=== PATIENT | female | born 1960 | race Caucasian/White ===

== ENCOUNTER 2022-05-31 13:54 | Inpatient (IN) | payer BC ==
[~2022-05-31] VITALS: Ht 165.1 cm; Wt 142.6 kg
[2022-05-31 14:17] LABS: BASOPHILS % (AUTO) 0.5 % (0-1); EOSINOPHILS % (AUTO) 0 % (0-6); HEMATOCRIT 41.4 % (35.0-45.0); HEMOGLOBIN 13.8 g/dl (12.0-16.0); LYMPHOCYTES # (AUTO) 0.1 X10'3 (1.1-4.8); LYMPHOCYTES % (AUTO) 1.4 % (21-51); MEAN CORPUSCULAR HEMOGLOBIN 29.7 PG (27.0-31.0); MEAN CORPUSCULAR HGB CONC 33.2 g/dL (33.0-36.5); MEAN CORPUSCULAR VOLUME 89.4 FL (78-98); MEAN PLATELET VOLUME 7.4 FL (7.4-10.4); MONOCYTES # (AUTO) 0.2 X10'3 (0-0.9); MONOCYTES % (AUTO) 2.7 % (2-12); NEUTROPHILS # (AUTO) 7.5 X10'3 (1.8-7.7); NEUTROPHILS % (AUTO) 95.4 % (42-75); PLATELET COUNT 125 X10'3 (140-440); RED BLOOD COUNT 4.64 X10'6 (4.20-5.60); RED CELL DISTRIBUTION WIDTH 14.2 % (11.5-14.5); WHITE BLOOD COUNT 7.9 X10'3 (4.5-11.0)
[2022-05-31] MEDS ORDERED: BISA-78 PO (14:18)
[2022-05-31] MEDS ORDERED: EMPA10TA PO (14:18)
[2022-05-31] MEDS ORDERED: ESOM40CA PO (14:18)
[2022-05-31] MEDS ORDERED: FEXO-271 PO (14:18)
[2022-05-31] MEDS ORDERED: ACET-3209 PO (14:18)
[2022-05-31] MEDS ORDERED: SIMV-42 PO (14:18)
[2022-05-31] MEDS ORDERED: ZOLP12.52 PO (14:18)
[2022-05-31] MEDS ORDERED: CARV6.252 PO (14:18)
[2022-05-31] MEDS ORDERED: LISI20TA28 PO (14:18)
[2022-05-31] MEDS ORDERED: ASPI-778 (14:18)
[2022-05-31] MEDS ORDERED: ACET-3174 (14:18)
[2022-05-31] MEDS ORDERED: IBUP-24 PO (14:18)
[2022-05-31] MEDS ORDERED: METF-437 PO (14:18)
[2022-05-31 14:24] LABS: APTT 33 SECONDS (22-32)
[2022-05-31 14:28] LABS: ALANINE AMINOTRANSFERASE 56 U/L (12-78); ALBUMIN 3.2 G/DL (3.4-5.0); ALBUMIN/GLOBULIN RATIO 0.8 (1.1-1.5); ALKALINE PHOSPHATASE 83 IU/L (46-116); ANION GAP 16 (8-16); ASPARTATE AMINO TRANSFERASE 108 U/L (10-37); BILIRUBIN,TOTAL 1.7 MG/DL (0.1-1.0); BLOOD UREA NITROGEN 32 MG/DL (7-18); BUN/CREATININE RATIO 19.3 (6.6-38.0); CHLORIDE 93 MMOL/L (99-107); CREATININE 1.66 MG/DL (0.40-0.90); GLUCOSE 229 MG/DL (70-104); POTASSIUM 4.3 MMOL/L (3.5-5.1); SODIUM 127 MMOL/L (135-145); TOTAL CARBON DIOXIDE 18.4 MMOL/L (24-32); eGFR 32 ML/MIN
[2022-05-31 14:50] LABS: TOTAL CELLS COUNTED 100
[2022-05-31 14:51] LABS: PLATELET ESTIMATE DECREASED; POIKILOCYTOSIS FEW; TOXIC VACUOLATION 2+
[2022-05-31 15:30] LABS: ETHANOL < 0.010 GM/DL (0.0-0.010)
[2022-05-31 15:57] LABS: LACTIC SEPSIS 3.6 MMOL/L (0.4-2.0)
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
[2022-05-31 16:03] LABS: AMMONIA < 10 UMOL/L (11-32)
[2022-05-31] MEDS ORDERED: CefTRIAXone/D5W-Rocephin 1gm 50 ML IV ONE (16:20)
[2022-05-31] MEDS ORDERED: vancomycin/NS 1 GM ADD-VANTAGE 250 ML IV ONE (16:20)
[2022-05-31] MEDS ORDERED: normal saline 1000ML IV soln IV ONE (16:20)
[2022-05-31 16:26] LABS: CLARITY,URINE CLOUDY (Clear); COLOR,URINE YELLOW (Yellow); GLUCOSE, URINE >=1000 mg/dl (Neg); KETONES,URINE 15 mg/dl (Neg); LEUKOCYTE ESTERASE ,URINE NEGATIVE (Neg); NITRITES, URINE NEGATIVE (Neg); OCCULT BLOOD,URINE LARGE (Neg); PH,URINE 5.5 (4.8-8.0); PROTEIN,URINE 100 mg/dl (Neg); UROBILINOGEN,URINE 0.2 E.U/dL (0.2-1.0)
[2022-05-31 16:32] LABS: UA COLLECTION TYPE STRAIGHT CATH
[2022-05-31 16:41] LABS: MUCUS STRANDS NONE SEEN /LPF (Neg); RBC,URINE NONE SEEN /HPF (0-2); SQUAMOUS EPITHELIAL CELL,UR FEW /LPF (FEW); WBC,URINE 0-4 /HPF (0-4)
[2022-05-31 16:44] LABS: URINE AMPHETAMINE SCREEN NEGATIVE (Neg); URINE BARBITUATE SCREEN NEGATIVE (Neg); URINE BENZODIAZEPINES SCREEN NEGATIVE (Neg); URINE CANNABINOID SCREEN NEGATIVE (Neg); URINE COCAINE SCREEN NEGATIVE (Neg); URINE METHADONE SCREEN NEGATIVE (Neg); URINE OPIATE SCREEN NEGATIVE (Neg); URINE PHENCYCLIDINE SCREEN NEGATIVE (Neg)
[2022-05-31 16:45] LABS: BACTERIA,URINE 3+ /HPF (Neg)
[2022-05-31] MEDS ORDERED: nitroGLYCERIN 0.4mg/hour patch TD ONE (17:05)
[2022-05-31] MEDS ORDERED: aspirin 81mg tab.chew PO ONE (17:05)
--- NOTE | 2022-05-31 17:42 | NUR ---
NOTIFIED OF [facility] OF [facility]
--- NOTE | 2022-05-31 18:01 | NUR ---
PT TO BE PREPPED FOR SPINAL TAP. PT SISTER TO CONSENT
[2022-05-31] MEDS ORDERED: acetaminophen 120MG suppository, rectal RC ONE (18:20)
--- NOTE | 2022-05-31 18:20 | NUR ---
TRANSFERED CARE TO ADARSH SOLIS
[2022-05-31] MEDS ORDERED: ondansetron/PF 4mg/2ml inj IV PRN (20:15)
[2022-05-31] MEDS ORDERED: PERFLUTREN PROTEIN-A MICROSPHR (Optison) 0.22 MG/ML 3ML VIAL IV ONE (20:15)
[2022-05-31] MEDS ORDERED: magnesium hydroxide 30ml (MOM) UD suspension PO PRN (20:15)
[2022-05-31] MEDS ORDERED: magnesium Cl slow-release 64mg tablet PO PRN (20:15)
[2022-05-31] MEDS ORDERED: magnesium 4gm in 100ml NS 100 ML IV PRN (20:15)
[2022-05-31] MEDS ORDERED: potassium Cl 40MEQ/1/2NS 520ml 520 ML IV PRN (20:15)
[2022-05-31] MEDS ORDERED: potassium Cl 20 mEq SR tablet PO PRN (20:15)
[2022-05-31] MEDS ORDERED: mag hydrox/Alum hydrox/simeth 30ml oral suspension PO PRN (20:15)
[2022-05-31] MEDS ORDERED: VANCOMYCIN 750MG IV in NS 250 ML IV ONE (20:30)
[2022-05-31 20:32] LABS: MAGNESIUM 2.1 MG/DL (1.5-2.4); POTASSIUM 4.2 MMOL/L (3.5-5.1)
[2022-05-31] MEDS: normal saline 1000ml 1,000 ML IV SCH (20:58)
[2022-05-31] MEDS ORDERED: ANAS1TAB10 PO (21:18)
[2022-05-31] MEDS ORDERED: acetaminophen 1,000mg/100ml IV 100 ML IV ONE (22:20)
--- NOTE | 2022-05-31 23:42 | NUR ---
NOTIFIED DR MCMAHON OF PT HYPOTENSION AND LOW MAP VALUES. NS 500ML BOLUS INFUSING NO NEW ORDERS
[2022-06-01] VITALS (9 sets, daily range): BP systolic 97–133; BP diastolic 53–104
--- NOTE | 2022-06-01 00:15 | NUR ---
NOTIFIED DR MCMAHON OF 500ML BOLUS INFUSION COMPLETED WITH NO CHANGE IN PT HYPOTENSION AND LOW MAP B/P'S 76/42 UP TO 86/48. DR MCMAHON WILL CONTACT HAND ALMOND BLANCHER FOR ICU ADMISSION AND ORDERS
--- NOTE | 2022-06-01 00:30 | NUR ---
NOTIFIED DR MCMAHON OF CONTINUED HYPOTENSION AND LOW MAP, AWAITING ORDERS. NO NEW ORDERS REC
--- NOTE | 2022-06-01 01:01 | NUR ---
BRY SISTER CONTACT #
--- NOTE | 2022-06-01 01:53 | NUR ---
DR MCMAHON RETURNED PAGED AND NOTIFIED THAT THIS PT IS NOW ADMITTED TO ICU AND TO REC ORDERS FROM DR HAMMOND FOR HYPOTENSION
--- NOTE | 2022-06-01 01:54 | NUR ---
DR MCMAHON SPOKE WITH DR JASSON MORALES PT PAGED DR HAMMOND REGARDING HYPOTENSION
--- NOTE | 2022-06-01 01:56 | NUR ---
CHARGE NURSE SARAH SPEAKING WITH DR HAMMOND FOR ICU ADMISSION ORDERS AND TX OF HYPOTENSION AND LOW MAPS
[2022-06-01] MEDS ORDERED: NORepinephrine 8mg/ 250ml NS 250 ML IV SCH (02:00)
--- NOTE | 2022-06-01 03:16 | NUR ---
NOTIFIED DR HAMMOND OF X2 SETS OF BC RESULTS: LEFT ARM: GRAM + COCCI IN PAIRS AND CHAINS AT 9.2HR RIGHT ARM": GRAM + COCCI IN PAIRS AND CHAINS AT 8.3HR
--- NOTE | 2022-06-01 03:18 | NUR ---
NOTIFIED DR HAMMOND OF PT TEMP CLIMBING BACK UPWARDS TO 101.0, REC ORDER FOR ADDITIONAL DOSE OF TYL 1GM IV NOW X 1
[2022-06-01] MEDS ORDERED: acetaminophen 1,000mg/100ml IV 100 ML IV ONE (03:20)
[2022-06-01 04:51] LABS: BASOPHILS % (AUTO) 0.2 % (0-1); EOSINOPHILS % (AUTO) 0.1 % (0-6); HEMATOCRIT 41.4 % (35.0-45.0); HEMOGLOBIN 13.8 g/dl (12.0-16.0); LYMPHOCYTES # (AUTO) 0.5 X10'3 (1.1-4.8); MEAN CORPUSCULAR HEMOGLOBIN 30.1 PG (27.0-31.0); MEAN CORPUSCULAR HGB CONC 33.4 g/dL (33.0-36.5); MEAN CORPUSCULAR VOLUME 90.2 FL (78-98); MEAN PLATELET VOLUME 7.7 FL (7.4-10.4); MONOCYTES # (AUTO) 0.8 X10'3 (0-0.9); MONOCYTES % (AUTO) 8.9 % (2-12); NEUTROPHILS # (AUTO) 8.2 X10'3 (1.8-7.7); NEUTROPHILS % (AUTO) 85.8 % (42-75); PLATELET COUNT 104 X10'3 (140-440); RED BLOOD COUNT 4.59 X10'6 (4.20-5.60); RED CELL DISTRIBUTION WIDTH 14.6 % (11.5-14.5); WHITE BLOOD COUNT 9.5 X10'3 (4.5-11.0)
[2022-06-01] MEDS ORDERED: AMOX-580 PO (04:54)
[2022-06-01] MEDS ORDERED: OMEP-271 PO (04:54)
[2022-06-01] MEDS ORDERED: DEXT1DRO6 OP (04:54)
[2022-06-01] MEDS ORDERED: FAMO40TA73 PO (04:54)
[2022-06-01] MEDS ORDERED: HYAL1CAP PO (04:54)
[2022-06-01] MEDS ORDERED: DULA1.5P SQ (04:54)
--- NOTE | 2022-06-01 05:00 | NUR ---
While assisting MD with central line noticed a clear nitro patch to pt left chest. Nitro patch removed and skin cleaned. Central line on hold to see if blood pressure will stabilize after removal of nitro patch.
[2022-06-01 05:03] LABS: ALBUMIN 2.7 G/DL (3.4-5.0); ANION GAP 15 (8-16); BLOOD UREA NITROGEN 26 MG/DL (7-18); BUN/CREATININE RATIO 21.3 (6.6-38.0); CALCIUM 8.3 MG/DL (8.5-10.1); CHLORIDE 100 MMOL/L (99-107); CREATININE 1.22 MG/DL (0.40-0.90); GLUCOSE 155 MG/DL (70-104); POTASSIUM 3.7 MMOL/L (3.5-5.1); SODIUM 133 MMOL/L (135-145); eGFR 45 ML/MIN
[2022-06-01] MEDS: K and/or MAG REPLACEMENT MC SCH ×2 (06:44→19:38)
[2022-06-01] MEDS: docusate sod 100mg capsule PO SCH ×2 (06:45→20:00)
[2022-06-01] MEDS: normal saline 1000ml 1,000 ML IV SCH ×2 (07:09→11:04)
[2022-06-01 07:23] LABS: PLATELET ESTIMATE DECREASED; TOTAL CELLS COUNTED 100
[2022-06-01] MEDS: vancomycin/NS 1 GM ADD-VANTAGE 250 ML IV SCH ×2 (08:16→20:00)
[2022-06-01] MEDS: enoxaparin 40mg/0.4ml syringe SUBCUT SCH (08:17)
[2022-06-01] MEDS: acetaminophen 325mg tablet PO PRN ×2 (08:28→14:05)
[2022-06-01] MEDS ORDERED: CefTRIAXone 2gm/D5W 50ml BAG 50 ML IV STA (08:42)
--- NOTE | 2022-06-01 09:00 | NUR ---
Received pt report from Martha SOLIS.
[2022-06-01] MEDS ORDERED: zolpidem 5mg tablet PO SCH (11:25)
[2022-06-01 11:49] LABS: HIV ANTIBODY 1&2 RAPID NON-REACTIVE (Neg)
[2022-06-01 13:00] LABS: HEMOGLOBIN A1C 6.1 % (4.5-6.2)
[2022-06-01 13:54] LABS: CREATINE KINASE 4364 U/L (26-192)
[2022-06-01] MEDS: oxyCODONE/APAP 5-325mg tablet PO PRN ×2 (14:03→18:06)
--- NOTE | 2022-06-01 14:42 | NUR ---
Paged MD regarding pt complaint of left knee pain and left wrist pain. Pt reports falling on that side prior to admit. Awaiting call back.
--- NOTE | 2022-06-01 14:47 | NUR ---
Attempted to call report, tele stated nurse will call back.
--- NOTE | 2022-06-01 15:30 | NUR ---
Received patient report from tele nurse Moises SOLIS. Patient going to room 9804L.
--- NOTE | 2022-06-01 16:42 | NUR ---
Patient transferred to room 3027B with all belongings. Sister and brother at bedside and are aware of transfer. Nurse Moises SOLIS at bedside to receive patient.
[2022-06-01] MEDS ORDERED: CefTRIAXone 2gm/D5W 50ml BAG 50 ML IV SCH (17:00)
[2022-06-01] MEDS: CefTRIAXone 2gm/D5W 50ml BAG 50 ML IV SCH (19:43)
[2022-06-01] MEDS: carvedilol 6.25mg tablet PO SCH (20:00)
[2022-06-01] MEDS: anastrozole 1 MG tablet PO SCH (21:39)
[2022-06-01] MEDS: atorvastatin 10mg tablet PO SCH (21:39)
--- NOTE | 2022-06-01 21:39 | NUR ---
scanned meds in room - family at bedside. must not have saved on computer - found eMAR still pink - pushed administer button.
[2022-06-01] MEDS ORDERED: vancomycin/NS 1 GM ADD-VANTAGE 250 ML IV SCH (22:00)
[2022-06-02] MEDS: normal saline 1000ml 1,000 ML IV SCH ×3 (00:47→20:15)
[2022-06-02 02:00] VITALS: BP 139/67
--- NOTE | 2022-06-02 02:52 | NUR ---
took patient VS - O2 sat in the 80s RT called and placed patient on 3L via CPAP. Patient very confused and grabbing at things that are not there. Not making sense with her words. Called MD - order for stat ABG
[2022-06-02 03:55] LABS: ABG BASE EXCESS -6.9 mmol/L (-2.0-2.0); ABG HCO3 15.8 mmol/L (22.0-26.0); ABG OXYGEN SATURATION 89.9 % (94-97); ABG PCO2 (T) 25.1 mmHg (32.0-45.0); ABG PO2 (T) 54.6 mmHg (75.0-100.0); ALLEN'S TEST POSITIVE; FCOHb 0.5 % (0.0-3.9); FMetHb 0.4 % (0.0-1.5); FO2Hb 89.1 % (94-97); TOTAL HEMOGLOBIN 13.6 G/dl (12.0-16.0)
--- NOTE | 2022-06-02 06:26 | NUR ---
Problems reprioritized. Patient report given, questions answered & plan of care reviewed with IRMA De Leon.
[2022-06-02 07:00] VITALS: BP 149/77
[2022-06-02] MEDS ORDERED: VANCOMYCIN LEVEL IV ONE (07:30)
[2022-06-02] MEDS: enoxaparin 40mg/0.4ml syringe SUBCUT SCH (08:00)
[2022-06-02] MEDS ORDERED: bisacodyl 5mg tablet.DR PO PRN (08:00)
[2022-06-02] MEDS ORDERED: EMPAGLIFLOZIN 25 MG TABLET PO SCH (08:00)
[2022-06-02] MEDS: K and/or MAG REPLACEMENT MC SCH ×2 (08:00→20:23)
[2022-06-02 08:41] LABS: BASOPHILS % (AUTO) 0.1 % (0-1); EOSINOPHILS # (AUTO) 0.1 X10'3 (0-0.9); EOSINOPHILS % (AUTO) 0.8 % (0-6); HEMATOCRIT 41.2 % (35.0-45.0); HEMOGLOBIN 13.6 g/dl (12.0-16.0); LYMPHOCYTES # (AUTO) 0.2 X10'3 (1.1-4.8); LYMPHOCYTES % (AUTO) 3.2 % (21-51); MEAN CORPUSCULAR HEMOGLOBIN 29.6 PG (27.0-31.0); MEAN CORPUSCULAR HGB CONC 32.9 g/dL (33.0-36.5); MEAN CORPUSCULAR VOLUME 89.8 FL (78-98); MEAN PLATELET VOLUME 7.8 FL (7.4-10.4); MONOCYTES # (AUTO) 0.4 X10'3 (0-0.9); MONOCYTES % (AUTO) 4.8 % (2-12); NEUTROPHILS # (AUTO) 6.9 X10'3 (1.8-7.7); NEUTROPHILS % (AUTO) 91.1 % (42-75); PLATELET COUNT 89 X10'3 (140-440); RED BLOOD COUNT 4.59 X10'6 (4.20-5.60); RED CELL DISTRIBUTION WIDTH 14.5 % (11.5-14.5); WHITE BLOOD COUNT 7.5 X10'3 (4.5-11.0)
[2022-06-02] MEDS: carvedilol 6.25mg tablet PO SCH ×2 (08:50→20:20)
[2022-06-02] MEDS: acetaminophen 325mg tablet PO PRN (08:50)
[2022-06-02] MEDS: docusate sod 100mg capsule PO SCH ×2 (08:50→20:20)
[2022-06-02] MEDS: pantoprazole 40mg Tablet.DR PO SCH (08:50)
[2022-06-02] MEDS: CefTRIAXone 2gm/D5W 50ml BAG 50 ML IV SCH (08:51)
[2022-06-02 08:53] LABS: ALBUMIN 2.4 G/DL (3.4-5.0); ANION GAP 16 (8-16); BLOOD UREA NITROGEN 23 MG/DL (7-18); BUN/CREATININE RATIO 20.2 (6.6-38.0); CALCIUM 8.8 MG/DL (8.5-10.1); CHLORIDE 98 MMOL/L (99-107); CREATININE 1.14 MG/DL (0.40-0.90); GLUCOSE 173 MG/DL (70-104); MAGNESIUM 1.9 MG/DL (1.5-2.4); SODIUM 131 MMOL/L (135-145); TOTAL CARBON DIOXIDE 16.8 MMOL/L (24-32); VANCOMYCIN,TROUGH 10.1 UG/ML (6.0-14.0); eGFR 49 ML/MIN
[2022-06-02 08:59] LABS: POTASSIUM 2.9 MMOL/L (3.5-5.1)
--- NOTE | 2022-06-02 09:09 | NUR ---
Diabetes consult: Pt w/ hx of DM A1c 6.1 per EMR, well controlled and appropriate. DM ed not indicated at this time. Addendum: 06/02/22 at [address] Amended: Links added.
[2022-06-02] MEDS: potassium Cl 20 mEq SR tablet PO PRN ×2 (09:36→20:20)
[2022-06-02] MEDS: vancomycin/NS 1 GM ADD-VANTAGE 250 ML IV SCH (09:41)
[2022-06-02] MEDS ORDERED: iohexol 300mg/ml 100ml inj. ONE (09:53)
[2022-06-02 12:38] VITALS: BP 103/54
[2022-06-02] MEDS: linezolid 600mg tablet PO SCH ×3 (13:50→20:20)
[2022-06-02] MEDS ORDERED: aspirin 81mg, enteric-coated 1 TAB TABLET.DR PO ONE (13:55)
[2022-06-02 15:00] VITALS: BP 133/70
[2022-06-02 19:00] VITALS: BP 113/48
[2022-06-02] MEDS: VANCOmycin 1250MG/NS 250ml Bag 250 ML IV SCH (20:17)
[2022-06-02] MEDS: anastrozole 1 MG tablet PO SCH (20:20)
[2022-06-02] MEDS: atorvastatin 10mg tablet PO SCH (20:21)
[2022-06-02] MEDS: traMADol 50MG tablet PO PRN (21:05)
[2022-06-02] MEDS ORDERED: MESSAGE TO PHARMACY PO ONE (22:10)
[2022-06-02] MEDS ORDERED: dextrose 50%-water 50ml dispensing syringe IV PRN ×2 (22:10)
[2022-06-02] MEDS ORDERED: glucagon, human recombinant 1mg kit SUBCUT PRN (22:10)
[2022-06-02] MEDS ORDERED: DEXTROSE 15 GM of carb/4 tabs (each vial/BOTTLE has 4 tablets) PO PRN ×2 (22:10)
[2022-06-02] MEDS ORDERED: insulin glargine (Lantus) pen - multi-dose SQ ONE (22:55)
[2022-06-02 23:00] VITALS: BP 105/57
[2022-06-03] MEDS: potassium Cl 20 mEq SR tablet PO PRN (00:59)
[2022-06-03 03:00] VITALS: BP 108/60
[2022-06-03 06:05] LABS: BASOPHILS % (AUTO) 0.2 % (0-1); EOSINOPHILS % (AUTO) 0.2 % (0-6); HEMATOCRIT 37.8 % (35.0-45.0); HEMOGLOBIN 12.7 g/dl (12.0-16.0); LYMPHOCYTES # (AUTO) 0.4 X10'3 (1.1-4.8); LYMPHOCYTES % (AUTO) 4.4 % (21-51); MEAN CORPUSCULAR HGB CONC 33.7 g/dL (33.0-36.5); MEAN CORPUSCULAR VOLUME 89.1 FL (78-98); MEAN PLATELET VOLUME 8.7 FL (7.4-10.4); MONOCYTES # (AUTO) 0.5 X10'3 (0-0.9); MONOCYTES % (AUTO) 5.1 % (2-12); NEUTROPHILS # (AUTO) 8.1 X10'3 (1.8-7.7); NEUTROPHILS % (AUTO) 90.1 % (42-75); PLATELET COUNT 95 X10'3 (140-440); RED BLOOD COUNT 4.24 X10'6 (4.20-5.60)
--- NOTE | 2022-06-03 06:51 | NUR ---
Patient in room PCU 3027. I have received report from Chapis and had the opportunity to ask questions and assume patient care.
[2022-06-03 07:00] VITALS: BP 123/68
[2022-06-03] MEDS: docusate sod 100mg capsule PO SCH ×2 (08:00→20:46)
[2022-06-03] MEDS: enoxaparin 40mg/0.4ml syringe SUBCUT SCH (08:00)
[2022-06-03] MEDS: K and/or MAG REPLACEMENT MC SCH ×2 (08:00→20:00)
[2022-06-03 08:22] LABS: ALBUMIN 1.9 G/DL (3.4-5.0); ANION GAP 10 (8-16); BLOOD UREA NITROGEN 23 MG/DL (7-18); BUN/CREATININE RATIO 26.4 (6.6-38.0); CALCIUM 8.5 MG/DL (8.5-10.1); CHLORIDE 102 MMOL/L (99-107); CREATININE 0.87 MG/DL (0.40-0.90); GLUCOSE 160 MG/DL (70-104); MAGNESIUM 1.8 MG/DL (1.5-2.4); POTASSIUM 3.7 MMOL/L (3.5-5.1); SODIUM 132 MMOL/L (135-145); TOTAL CARBON DIOXIDE 20.3 MMOL/L (24-32); eGFR 67 ML/MIN
--- NOTE | 2022-06-03 08:57 | NUR ---
Noted pt started on Zyvox though is currently confused per RN notes, documented as A&O x 2, not appropriate for ed at this time. Addendum: 06/03/22 at [address] Amended: Links added.
[2022-06-03] MEDS: CefTRIAXone 2gm/D5W 50ml BAG 50 ML IV SCH (09:34)
[2022-06-03] MEDS: carvedilol 6.25mg tablet PO SCH ×2 (09:47→20:46)
[2022-06-03] MEDS: aspirin 81mg, enteric-coated 1 TAB TABLET.DR PO SCH (09:47)
[2022-06-03] MEDS: pantoprazole 40mg Tablet.DR PO SCH (09:48)
[2022-06-03] MEDS: linezolid 600mg tablet PO SCH ×2 (09:49→20:46)
[2022-06-03 10:00] VITALS: BP 143/76
[2022-06-03 10:19] LABS: TOTAL CELLS COUNTED 100
[2022-06-03 10:20] LABS: ANISOCYTOSIS FEW; BURR CELLS 1+; PLATELET ESTIMATE DECREASED; TOXIC VACUOLATION 2+
[2022-06-03] MEDS: Dulaglutide (Trulicity) 1.5 MG/0.5ML SQ SCH (11:28)
[2022-06-03] MEDS: VANCOmycin 1250MG/NS 250ml Bag 250 ML IV SCH ×2 (11:55→20:48)
[2022-06-03] MEDS: normal saline 1000ml 1,000 ML IV SCH (11:55)
--- NOTE | 2022-06-03 13:54 | NUR ---
PRESSURE ULCER EDUCATION: DEFINITION: A pressure ulcer is an area of skin that breaks down when you stay in one position too long. The constant pressure against the skin reduces the blood flow to that area and the affected tissue dies. CAUSES: "Being bedridden or in a wheelchair "Fragile skin "Having a chronic condition, such as diabetes or vascular disease "Inability to move certain parts of your body without assistance "Older age "Incontinence of urine or stool SYMPTOMS: "A reddened area that DOES NOT turn white when pressed on - this can be the beginning of a pressure ulcer "A blister, deep sore or a crater - these can be advanced pressure ulcers FIRST AID: "Relieve the pressure on this area "Keep the area clean and dry "Call your primary doctor if you see any of the above symptoms "DO NOT massage the area "DO NOT use a donut shaped or ring shaped pillow- these actually interfere with the blood flow and cause complications PREVENTION: "Check for pressure ulcers everyday "Change position at least every two hours to relieve pressure "Use items that help relieve pressure- pillows, sheepskin, foam padding, and powders. "Keep skin clean and dry "Eat healthy well balanced meals "Exercise daily IF YOU SEE ANY OF THESE SYMPTOMS WHILE IN THE HOSPITAL - TELL YOUR NURSE IMMEDIATELY. IF YOU SEE ANY OF THESE SYMPTOMS WHILE AT HOME OR HAVE ANY QUESTIONS OR CONCERNS ABOUT PRESSURE ULCERS - CALL YOUR PRIMARY DOCTOR IMMEDIATELY. Addendum: 06/03/22 at 1354 by Charity Pérez LVN Amended: Links added.
[2022-06-03] MEDS ORDERED: iohexol 350MG/ML 100ml bottle IV ONE (15:18)
[2022-06-03 18:00] VITALS: BP 141/73
--- NOTE | 2022-06-03 18:27 | NUR ---
Problems reprioritized. Patient report given, questions answered & plan of care reviewed with Alma Cary
[2022-06-03] MEDS: atorvastatin 10mg tablet PO SCH (20:46)
[2022-06-03] MEDS: nystatin 15 GM powder TP SCH (20:46)
[2022-06-03] MEDS: anastrozole 1 MG tablet PO SCH (20:48)
[2022-06-03] MEDS ORDERED: insulin glargine (Lantus) pen - multi-dose SQ SCH (21:00)
[2022-06-03 22:00] VITALS: BP 118/66
[2022-06-04] MEDS: normal saline 1000ml 1,000 ML IV SCH ×4 (00:24→20:51)
[2022-06-04] MEDS: traMADol 50MG tablet PO PRN ×3 (00:25→20:40)
[2022-06-04 02:00] VITALS: BP 123/70
[2022-06-04 06:30] VITALS: BP 130/81
--- NOTE | 2022-06-04 07:07 | NUR ---
Patient in room PCU 3027. I have received report from Alma Morales and had the opportunity to ask questions and assume patient care.
[2022-06-04] MEDS ORDERED: VANCOMYCIN LEVEL IV ONE (07:30)
[2022-06-04] MEDS: K and/or MAG REPLACEMENT MC SCH ×2 (08:00→20:00)
[2022-06-04] MEDS: docusate sod 100mg capsule PO SCH ×2 (08:00→20:00)
[2022-06-04 08:01] LABS: HEMATOCRIT 37.6 % (35.0-45.0); HEMOGLOBIN 12.7 g/dl (12.0-16.0); MEAN CORPUSCULAR HEMOGLOBIN 29.8 PG (27.0-31.0); MEAN CORPUSCULAR HGB CONC 33.8 g/dL (33.0-36.5); MEAN CORPUSCULAR VOLUME 88.2 FL (78-98); PLATELET COUNT 106 X10'3 (140-440); RED BLOOD COUNT 4.26 X10'6 (4.20-5.60); RED CELL DISTRIBUTION WIDTH 15.1 % (11.5-14.5); WHITE BLOOD COUNT 9.9 X10'3 (4.5-11.0)
[2022-06-04 08:02] LABS: BASOPHILS % (AUTO) 0.3 % (0-1); EOSINOPHILS % (AUTO) 0.2 % (0-6); LYMPHOCYTES % (AUTO) 9.8 % (21-51); MEAN PLATELET VOLUME 8.1 FL (7.4-10.4); MONOCYTES # (AUTO) 0.9 X10'3 (0-0.9); MONOCYTES % (AUTO) 9.1 % (2-12); NEUTROPHILS % (AUTO) 80.6 % (42-75)
[2022-06-04 08:18] LABS: ANION GAP 9 (8-16); CHLORIDE 104 MMOL/L (99-107); GLUCOSE 122 MG/DL (70-104); POTASSIUM 3.5 MMOL/L (3.5-5.1); SODIUM 134 MMOL/L (135-145); TOTAL CARBON DIOXIDE 20.6 MMOL/L (24-32)
[2022-06-04 08:19] LABS: ALBUMIN 1.7 G/DL (3.4-5.0); BLOOD UREA NITROGEN 20 MG/DL (7-18); BUN/CREATININE RATIO 25.6 (6.6-38.0); CALCIUM 8.4 MG/DL (8.5-10.1); CREATININE 0.78 MG/DL (0.40-0.90); MAGNESIUM 1.7 MG/DL (1.5-2.4); VANCOMYCIN,TROUGH 15.4 UG/ML (6.0-14.0); eGFR 76 ML/MIN
[2022-06-04 09:17] LABS: ANISOCYTOSIS FEW; PLATELET ESTIMATE DECREASED; TOTAL CELLS COUNTED 100
[2022-06-04 09:18] LABS: ELLIPTOCYTES FEW; HYPERSEGMENTED NEUTROPHILS 1+; POLYCHROMASIA FEW; TOXIC GRANULATION 1+; TOXIC VACUOLATION FEW
[2022-06-04] MEDS: CefTRIAXone 2gm/D5W 50ml BAG 50 ML IV SCH (09:18)
[2022-06-04] MEDS: carvedilol 6.25mg tablet PO SCH ×2 (09:25→20:28)
[2022-06-04] MEDS: pantoprazole 40mg Tablet.DR PO SCH (09:26)
[2022-06-04] MEDS: aspirin 81mg, enteric-coated 1 TAB TABLET.DR PO SCH (09:26)
[2022-06-04] MEDS: linezolid 600mg tablet PO SCH ×2 (09:26→20:24)
[2022-06-04] MEDS: clopidogrel 75mg tablet PO SCH (09:26)
[2022-06-04] MEDS: nystatin 15 GM powder TP SCH ×3 (09:27→20:42)
[2022-06-04] MEDS: enoxaparin 40mg/0.4ml syringe SUBCUT SCH (09:28)
[2022-06-04 10:00] VITALS: BP 156/86
[2022-06-04 18:00] VITALS: BP 140/80
--- NOTE | 2022-06-04 18:26 | NUR ---
Problems reprioritized. Patient report given, questions answered & plan of care reviewed with Clary.
[2022-06-04] MEDS: atorvastatin 10mg tablet PO SCH (20:24)
[2022-06-04] MEDS: anastrozole 1 MG tablet PO SCH (20:25)
[2022-06-04] MEDS: acetaminophen 325mg tablet PO PRN (21:52)
[2022-06-04 22:00] VITALS: BP 136/75
[2022-06-05 02:00] VITALS: BP 126/98
[2022-06-05 05:50] LABS: BASOPHILS % (AUTO) 0.2 % (0-1); EOSINOPHILS # (AUTO) 0.1 X10'3 (0-0.9); EOSINOPHILS % (AUTO) 0.7 % (0-6); HEMATOCRIT 37.7 % (35.0-45.0); HEMOGLOBIN 12.7 g/dl (12.0-16.0); LYMPHOCYTES # (AUTO) 1.3 X10'3 (1.1-4.8); LYMPHOCYTES % (AUTO) 11.5 % (21-51); MEAN CORPUSCULAR HEMOGLOBIN 29.8 PG (27.0-31.0); MEAN CORPUSCULAR HGB CONC 33.8 g/dL (33.0-36.5); MEAN CORPUSCULAR VOLUME 88.2 FL (78-98); MEAN PLATELET VOLUME 7.6 FL (7.4-10.4); MONOCYTES % (AUTO) 9.1 % (2-12); NEUTROPHILS # (AUTO) 8.7 X10'3 (1.8-7.7); NEUTROPHILS % (AUTO) 78.5 % (42-75); PLATELET COUNT 137 X10'3 (140-440); RED BLOOD COUNT 4.28 X10'6 (4.20-5.60); RED CELL DISTRIBUTION WIDTH 14.9 % (11.5-14.5); WHITE BLOOD COUNT 11.1 X10'3 (4.5-11.0)
[2022-06-05 06:18] LABS: TOTAL CELLS COUNTED 100
[2022-06-05 06:19] LABS: PLATELET ESTIMATE DECREASED
[2022-06-05 06:22] LABS: ALBUMIN 1.7 G/DL (3.4-5.0); ANION GAP 8 (8-16); BLOOD UREA NITROGEN 20 MG/DL (7-18); BUN/CREATININE RATIO 27.4 (6.6-38.0); CALCIUM 8.4 MG/DL (8.5-10.1); CHLORIDE 106 MMOL/L (99-107); CREATININE 0.73 MG/DL (0.40-0.90); GLUCOSE 110 MG/DL (70-104); POTASSIUM 3.4 MMOL/L (3.5-5.1); SODIUM 136 MMOL/L (135-145); TOTAL CARBON DIOXIDE 22.3 MMOL/L (24-32); eGFR 82 ML/MIN
[2022-06-05 06:30] VITALS: BP 122/64
[2022-06-05] MEDS: normal saline 1000ml 1,000 ML IV SCH (06:32)
[2022-06-05] MEDS: K and/or MAG REPLACEMENT MC SCH ×2 (08:00→20:00)
[2022-06-05] MEDS: enoxaparin 40mg/0.4ml syringe SUBCUT SCH (08:46)
[2022-06-05] MEDS: carvedilol 6.25mg tablet PO SCH ×2 (08:46→20:10)
[2022-06-05] MEDS: aspirin 81mg, enteric-coated 1 TAB TABLET.DR PO SCH (08:46)
[2022-06-05] MEDS: linezolid 600mg tablet PO SCH ×2 (08:46→20:10)
[2022-06-05] MEDS: pantoprazole 40mg Tablet.DR PO SCH (08:46)
[2022-06-05] MEDS: docusate sod 100mg capsule PO SCH ×2 (08:46→20:00)
[2022-06-05] MEDS: clopidogrel 75mg tablet PO SCH (08:46)
[2022-06-05] MEDS: nystatin 15 GM powder TP SCH ×3 (08:52→22:00)
[2022-06-05] MEDS: CefTRIAXone 2gm/D5W 50ml BAG 50 ML IV SCH (08:56)
[2022-06-05] MEDS ORDERED: magnesium 4gm in 100ml NS 100 ML IV PRN (09:10)
[2022-06-05] MEDS ORDERED: magnesium Cl slow-release 64mg tablet PO PRN (09:10)
[2022-06-05] MEDS ORDERED: potassium Cl 40MEQ/1/2NS 520ml 520 ML IV PRN (09:10)
[2022-06-05] MEDS ORDERED: potassium Cl 20 mEq SR tablet PO PRN (09:10)
--- NOTE | 2022-06-05 09:11 | NUR ---
gave order to start Pot/Mag replacement protocol. Orders updated.
[2022-06-05 09:31] LABS: CREATINE KINASE 136 U/L (26-192)
--- NOTE | 2022-06-05 10:37 | NUR ---
Patient in room PCU 3027. I have received report from Clary and had the opportunity to ask questions and assume patient care.
--- NOTE | 2022-06-05 13:21 | NUR ---
Initial: Pt admit for sepsis, RLE cellulitis, lactic acidosis, NSTEMI, YASEMIN, and hyponatremia. Pt initially on a full liquid diet and overall ate poorly, documented with mostly 0-25% PO intake. PO intake slightly improved with diet advancement to CHO controlled, documented with average 58% PO intake of three recent meals, though not meeting estimated nutrient needs. Pt seen at bedside with sister present. Pt reports usually having a great appetite and able to eat well however currently with no appetite, pt only consumed a few bites of chicken and rice at lunch per sister. Pt also with c/o dry mouth despite reporting drinking a lot of water. RD discussed ways to assist with dry mouth and obtained food preferences, see below. Pt agrees to an Ensure to optimize nutrient intake and requests BIDLD, to be sent pending physician approval in EMR. Pt denies food allergies, difficulty chewing/swallowing, or constipation/diarrhea. LBM 06/03, receiving routine bowel care with PRN bowel care available. Written and verbal low tyramine nutrition therapy education provided with RD contact information. Pt/family encouraged to reach out if needed. Will continue to follow. Recommendations: 1) Liberalize to regular diet if PO intake does not improve, A1c 6.1% 2) Encourage PO intake and honor food preferences: chicken broth WL, chocolate ice cream WS, no garlic 3) Chocolate Ensure Plus HP BIDLD, pending physician approval in EMR 4) Routine bowel care 5) Weekly scaled weights Addendum: 06/05/22 at [address] Amended: Links added.
--- NOTE | 2022-06-05 14:24 | NUR ---
Potassium supplement 20meq dose given at 0949 today, improper documentation in MAR, MAR reflects 40meq. Second dose being administered at 1430.
--- NOTE | 2022-06-05 14:30 | NUR ---
Re: Chace in 3028[address]. trop [address]
[2022-06-05] MEDS: potassium Cl 20 mEq SR tablet PO PRN ×2 (14:37→20:13)
[2022-06-05] MEDS: meropenem inj 1 GM in normal saline 100ml IV soln 100 ML IV SCH ×2 (16:18→23:48)
[2022-06-05 18:00] VITALS: BP 135/64
--- NOTE | 2022-06-05 18:10 | NUR ---
Problems reprioritized. Patient report given, questions answered & plan of care reviewed with Nikko.
[2022-06-05] MEDS ORDERED: nitroGLYCERIN 0.4mg SUBLingual tab SL PRN (18:35)
[2022-06-05] MEDS ORDERED: metoprolol tartrate 1mg/ml inj IV PRN (18:35)
[2022-06-05] MEDS ORDERED: regadenoson 0.4mg/5ml syringe IV PRN (18:35)
[2022-06-05] MEDS ORDERED: aminophylline 500mg/20ml vial IV PRN (18:35)
[2022-06-05 20:00] VITALS: BP 157/81
[2022-06-05] MEDS ORDERED: K and/or MAG REPLACEMENT MC SCH (20:00)
[2022-06-05] MEDS: anastrozole 1 MG tablet PO SCH (20:11)
[2022-06-05] MEDS: atorvastatin 10mg tablet PO SCH (23:48)
[2022-06-05] MEDS: traMADol 50MG tablet PO PRN (23:55)
[2022-06-06] VITALS (13 sets, daily range): BP systolic 137–168; BP diastolic 69–95
--- NOTE | 2022-06-06 00:10 | NUR ---
noted pt has dry mouth. added humidification to oxygen tubing that is attached to the patients cpap (not filled in cpap machine, pt states "oh, we took that off"). pt painful, ultram given. pt requested to have ROM on LE's. right leg stronger than left leg. pt able to help move right leg more than left b/c of pain. encouraged pt to do ankle pumps and quad sets while in bed to encouraged strengthening. vebalized understanding and able to return demonstration.
--- NOTE | 2022-06-06 06:25 | NUR ---
reported to days. noted pt will have ulices scan today - pt is NPO
--- NOTE | 2022-06-06 07:10 | NUR ---
Patient in room PCU 3027. I have received report from IRMA El and had the opportunity to ask questions and assume patient care.
[2022-06-06] MEDS: K and/or MAG REPLACEMENT MC SCH ×2 (08:00→20:00)
[2022-06-06] MEDS: docusate sod 100mg capsule PO SCH ×2 (10:48→21:33)
[2022-06-06] MEDS: nystatin 15 GM powder TP SCH ×3 (10:48→21:33)
[2022-06-06] MEDS: clopidogrel 75mg tablet PO SCH (10:48)
[2022-06-06] MEDS: carvedilol 6.25mg tablet PO SCH ×2 (10:49→21:32)
[2022-06-06] MEDS: pantoprazole 40mg Tablet.DR PO SCH (10:49)
[2022-06-06] MEDS: linezolid 600mg tablet PO SCH ×2 (10:49→21:32)
[2022-06-06] MEDS: aspirin 81mg, enteric-coated 1 TAB TABLET.DR PO SCH (10:49)
[2022-06-06] MEDS: enoxaparin 40mg/0.4ml syringe SUBCUT SCH (10:50)
[2022-06-06] MEDS: meropenem inj 1 GM in normal saline 100ml IV soln 100 ML IV SCH ×3 (10:50→23:57)
[2022-06-06] MEDS: LACTOSE-REDUCED FOOD (ENSURE PLUS HP) 237 ML LIQUID PO SCH ×2 (12:30→18:13)
--- NOTE | 2022-06-06 12:30 | NUR ---
PAGER ID: [phone] MESSAGE: Violeta [phone] RE: Carli Mas room 3027B - can she have a diet for lunch? Thank you
--- NOTE | 2022-06-06 13:17 | NUR ---
PAGER ID: [phone] MESSAGE: Violeta [phone] RE: Crali Buttarmando room 3027B - can we order a K lab and also can she have food or still NPO?
--- NOTE | 2022-06-06 18:15 | NUR ---
Problems reprioritized. Patient report given, questions answered & plan of care reviewed with IRMA El.
[2022-06-06] MEDS: atorvastatin 10mg tablet PO SCH (21:32)
[2022-06-06] MEDS: traMADol 50MG tablet PO PRN (21:32)
[2022-06-06] MEDS: anastrozole 1 MG tablet PO SCH (21:33)
[2022-06-07 07:00] VITALS: BP 160/87
--- NOTE | 2022-06-07 07:07 | NUR ---
reported to days. noted pt anticipates discharge to [facility] today.
[2022-06-07] MEDS: K and/or MAG REPLACEMENT MC SCH ×2 (08:00→20:00)
[2022-06-07] MEDS: aspirin 81mg, enteric-coated 1 TAB TABLET.DR PO SCH (08:25)
[2022-06-07] MEDS: linezolid 600mg tablet PO SCH ×2 (08:25→22:54)
[2022-06-07] MEDS: nystatin 15 GM powder TP SCH ×3 (08:26→23:14)
[2022-06-07] MEDS: docusate sod 100mg capsule PO SCH ×2 (08:26→22:54)
[2022-06-07] MEDS: carvedilol 6.25mg tablet PO SCH ×2 (08:26→22:54)
[2022-06-07] MEDS: pantoprazole 40mg Tablet.DR PO SCH (08:26)
[2022-06-07] MEDS: enoxaparin 40mg/0.4ml syringe SUBCUT SCH (08:26)
[2022-06-07] MEDS: clopidogrel 75mg tablet PO SCH (08:26)
[2022-06-07] MEDS: meropenem inj 1 GM in normal saline 100ml IV soln 100 ML IV SCH ×2 (08:29→16:24)
[2022-06-07 08:52] LABS: BASOPHILS % (AUTO) 0.4 % (0-1); EOSINOPHILS # (AUTO) 0.1 X10'3 (0-0.9); EOSINOPHILS % (AUTO) 1.1 % (0-6); HEMATOCRIT 35.5 % (35.0-45.0); HEMOGLOBIN 12.1 g/dl (12.0-16.0); LYMPHOCYTES # (AUTO) 1.7 X10'3 (1.1-4.8); LYMPHOCYTES % (AUTO) 18.7 % (21-51); MEAN CORPUSCULAR HEMOGLOBIN 30.2 PG (27.0-31.0); MONOCYTES # (AUTO) 0.8 X10'3 (0-0.9); MONOCYTES % (AUTO) 9.1 % (2-12); NEUTROPHILS # (AUTO) 6.5 X10'3 (1.8-7.7); NEUTROPHILS % (AUTO) 70.7 % (42-75); PLATELET COUNT 237 X10'3 (140-440); RED BLOOD COUNT 3.98 X10'6 (4.20-5.60); RED CELL DISTRIBUTION WIDTH 14.9 % (11.5-14.5); WHITE BLOOD COUNT 9.2 X10'3 (4.5-11.0)
[2022-06-07 09:16] LABS: ALBUMIN 1.6 G/DL (3.4-5.0); ANION GAP 9 (8-16); BLOOD UREA NITROGEN 15 MG/DL (7-18); BUN/CREATININE RATIO 21.1 (6.6-38.0); CHLORIDE 108 MMOL/L (99-107); CREATININE 0.71 MG/DL (0.40-0.90); GLUCOSE 141 MG/DL (70-104); POTASSIUM 3.8 MMOL/L (3.5-5.1); SODIUM 139 MMOL/L (135-145); TOTAL CARBON DIOXIDE 21.9 MMOL/L (24-32); eGFR 84 ML/MIN
[2022-06-07 11:00] VITALS: BP 149/84
[2022-06-07] MEDS: LACTOSE-REDUCED FOOD (ENSURE PLUS HP) 237 ML LIQUID PO SCH ×2 (12:30→17:30)
[2022-06-07 15:00] VITALS: BP 161/86
[2022-06-07] MEDS: traMADol 50MG tablet PO PRN (17:24)
[2022-06-07] MEDS: insulin Lispro (HumaLOG) vial - multi-dose SQ SCH (19:16)
[2022-06-07] MEDS: hydrALAZINE 20mg/ml inj. IV PRN (19:23)
[2022-06-07 22:52] VITALS: BP 160/89
[2022-06-07] MEDS: atorvastatin 10mg tablet PO SCH (22:54)
[2022-06-07] MEDS: anastrozole 1 MG tablet PO SCH (22:56)
[2022-06-08 07:00] VITALS: BP 157/88
[2022-06-08] MEDS: pantoprazole 40mg Tablet.DR PO SCH (07:30)
[2022-06-08] MEDS: enoxaparin 40mg/0.4ml syringe SUBCUT SCH (07:30)
[2022-06-08] MEDS: aspirin 81mg, enteric-coated 1 TAB TABLET.DR PO SCH (07:30)
[2022-06-08] MEDS: linezolid 600mg tablet PO SCH ×2 (07:30→20:00)
[2022-06-08] MEDS: clopidogrel 75mg tablet PO SCH (07:30)
[2022-06-08] MEDS: docusate sod 100mg capsule PO SCH ×2 (07:30→20:00)
[2022-06-08] MEDS: meropenem inj 1 GM in normal saline 100ml IV soln 100 ML IV SCH ×4 (07:30→15:21)
[2022-06-08] MEDS: carvedilol 6.25mg tablet PO SCH ×2 (07:30→20:00)
[2022-06-08] MEDS: K and/or MAG REPLACEMENT MC SCH ×2 (07:31→20:00)
[2022-06-08] MEDS: nystatin 15 GM powder TP SCH ×3 (07:32→21:00)
[2022-06-08 11:00] VITALS: BP 165/79
--- NOTE | 2022-06-08 11:40 | NUR ---
Reassessment: Pt documented with average 38% PO intake of five most recent meals with refusal of one meal. Pt now receiving an Ensure BID, documented to have refused one ONS. Pt receiving food preferences and has RD contact information and has been encouraged to reach out for further preferences. LB 06/03, receiving routine bowel care. D/w dietary to send power pudding with next meal to further assist with bowel regularity. Will continue to follow closely. Recommendations: 1) Liberalize to regular diet if PO intake does not improve, A1c 6.1% 2) Encourage PO intake and honor food preferences: chicken broth WL, chocolate ice cream WS, no garlic 3) Chocolate Ensure Plus HP BIDLD 4) Routine bowel care 5) Weekly scaled weights Addendum: 06/08/22 at [address] Amended: Links added.
[2022-06-08] MEDS ORDERED: lisinopril 10 MG tablet PO ONE (12:25)
[2022-06-08] MEDS: LACTOSE-REDUCED FOOD (ENSURE PLUS HP) 237 ML LIQUID PO SCH ×2 (12:30→18:00)
[2022-06-08 15:00] VITALS: BP 148/84
[2022-06-08] MEDS: insulin Lispro (HumaLOG) vial - multi-dose SQ SCH (19:43)
[2022-06-08] MEDS: atorvastatin 10mg tablet PO SCH (21:00)
[2022-06-08] MEDS: anastrozole 1 MG tablet PO SCH (21:00)
[2022-06-08 22:00] VITALS: BP 150/70
[2022-06-09 03:19] VITALS: BP 150/68
[2022-06-09] MEDS: K and/or MAG REPLACEMENT MC SCH ×2 (08:00→20:00)
[2022-06-09] MEDS: meropenem inj 1 GM in normal saline 100ml IV soln 100 ML IV SCH ×4 (09:43→16:00)
[2022-06-09] MEDS: pantoprazole 40mg Tablet.DR PO SCH (09:45)
[2022-06-09] MEDS: nystatin 15 GM powder TP SCH ×3 (09:45→22:02)
[2022-06-09] MEDS: carvedilol 6.25mg tablet PO SCH ×2 (09:45→19:34)
[2022-06-09] MEDS: clopidogrel 75mg tablet PO SCH (09:45)
[2022-06-09] MEDS: aspirin 81mg, enteric-coated 1 TAB TABLET.DR PO SCH (09:45)
[2022-06-09] MEDS: enoxaparin 40mg/0.4ml syringe SUBCUT SCH (09:45)
[2022-06-09] MEDS: linezolid 600mg tablet PO SCH ×2 (09:46→19:31)
[2022-06-09] MEDS: docusate sod 100mg capsule PO SCH ×2 (10:00→19:34)
[2022-06-09] MEDS: lisinopril 10 MG tablet PO SCH (10:00)
[2022-06-09] MEDS: LACTOSE-REDUCED FOOD (ENSURE PLUS HP) 237 ML LIQUID PO SCH (12:30)
[2022-06-09] MEDS: insulin Lispro (HumaLOG) vial - multi-dose SQ SCH ×2 (15:41→19:26)
[2022-06-09] MEDS: traMADol 50MG tablet PO PRN ×2 (15:51→18:57)
[2022-06-09 18:00] VITALS: BP 166/84
[2022-06-09] MEDS: acetaminophen 325mg tablet PO PRN (19:42)
[2022-06-09 22:00] VITALS: BP 147/63
[2022-06-09] MEDS: anastrozole 1 MG tablet PO SCH (22:02)
[2022-06-09] MEDS: atorvastatin 10mg tablet PO SCH (22:25)
[2022-06-09 22:30] VITALS: BP 160/72
--- NOTE | 2022-06-09 22:38 | NUR ---
Patient in room PCU 3027. I have received report from KRISTOPHER SOLIS and had the opportunity to ask questions and assume patient care.
[2022-06-10] VITALS (7 sets, daily range): BP systolic 136–179; BP diastolic 70–92
[2022-06-10] MEDS: hydrALAZINE 20mg/ml inj. IV PRN ×2 (00:44→07:48)
[2022-06-10] MEDS: meropenem inj 1 GM in normal saline 100ml IV soln 100 ML IV SCH ×3 (00:48→16:36)
--- NOTE | 2022-06-10 06:15 | NUR ---
HYDRALAZINE GIVEN SECOND TIME FOR SBP ABOVE 160-PATIENTS BP178/70'S
--- NOTE | 2022-06-10 06:37 | NUR ---
Patient in room PCU 3027. I have received report from IRMA AUGUSTIN, and had the opportunity to ask questions and assume patient care.
[2022-06-10 06:44] LABS: BASOPHILS % (AUTO) 0.8 % (0-1); EOSINOPHILS # (AUTO) 0.2 X10'3 (0-0.9); EOSINOPHILS % (AUTO) 3.1 % (0-6); HEMATOCRIT 35.8 % (35.0-45.0); LYMPHOCYTES # (AUTO) 1.5 X10'3 (1.1-4.8); LYMPHOCYTES % (AUTO) 25.6 % (21-51); MEAN CORPUSCULAR HEMOGLOBIN 29.9 PG (27.0-31.0); MEAN CORPUSCULAR HGB CONC 33.4 g/dL (33.0-36.5); MEAN CORPUSCULAR VOLUME 89.4 FL (78-98); MEAN PLATELET VOLUME 6.1 FL (7.4-10.4); MONOCYTES # (AUTO) 0.7 X10'3 (0-0.9); MONOCYTES % (AUTO) 11.9 % (2-12); NEUTROPHILS # (AUTO) 3.4 X10'3 (1.8-7.7); NEUTROPHILS % (AUTO) 58.6 % (42-75); PLATELET COUNT 287 X10'3 (140-440); WHITE BLOOD COUNT 5.8 X10'3 (4.5-11.0)
[2022-06-10 07:17] LABS: ALBUMIN 1.7 G/DL (3.4-5.0); ANION GAP 6 (8-16); BLOOD UREA NITROGEN 14 MG/DL (7-18); BUN/CREATININE RATIO 20.6 (6.6-38.0); CALCIUM 7.8 MG/DL (8.5-10.1); CHLORIDE 104 MMOL/L (99-107); CREATININE 0.68 MG/DL (0.40-0.90); GLUCOSE 135 MG/DL (70-104); POTASSIUM 3.9 MMOL/L (3.5-5.1); SODIUM 138 MMOL/L (135-145); TOTAL CARBON DIOXIDE 27.6 MMOL/L (24-32); eGFR 89 ML/MIN
[2022-06-10] MEDS: carvedilol 6.25mg tablet PO SCH ×2 (08:00→20:35)
[2022-06-10] MEDS: pantoprazole 40mg Tablet.DR PO SCH (08:00)
[2022-06-10] MEDS: K and/or MAG REPLACEMENT MC SCH ×2 (08:00→20:00)
[2022-06-10] MEDS: lisinopril 10 MG tablet PO SCH (08:00)
[2022-06-10] MEDS: nystatin 15 GM powder TP SCH ×3 (08:00→20:35)
[2022-06-10] MEDS: linezolid 600mg tablet PO SCH ×2 (08:00→20:35)
[2022-06-10] MEDS: docusate sod 100mg capsule PO SCH ×2 (08:00→20:00)
[2022-06-10] MEDS: aspirin 81mg, enteric-coated 1 TAB TABLET.DR PO SCH (08:00)
[2022-06-10] MEDS: clopidogrel 75mg tablet PO SCH (08:00)
[2022-06-10] MEDS: enoxaparin 40mg/0.4ml syringe SUBCUT SCH (08:00)
[2022-06-10] MEDS: insulin Lispro (HumaLOG) vial - multi-dose SQ SCH ×3 (09:32→19:04)
--- NOTE | 2022-06-10 10:00 | NUR ---
PAGE SENT 0860C,CHAPITO GARCÍA, PER DR. VILLAGRAN, PT WOULD APPRECIATE UPDATES TO TRANSITION OF CARE. THANK YOU, ISAAC Pal [phone]
[2022-06-10] MEDS: LACTOSE-REDUCED FOOD (ENSURE PLUS HP) 237 ML LIQUID PO SCH ×2 (12:30→17:56)
--- NOTE | 2022-06-10 18:42 | NUR ---
Problems reprioritized. Patient report given, questions answered & plan of care reviewed with IRMA VIZCARRA.
[2022-06-10] MEDS: anastrozole 1 MG tablet PO SCH (20:35)
[2022-06-10] MEDS: atorvastatin 10mg tablet PO SCH (20:35)
[2022-06-10] MEDS: Dulaglutide (Trulicity) 1.5 MG/0.5ML SQ SCH (22:27)
[2022-06-11] MEDS: meropenem inj 1 GM in normal saline 100ml IV soln 100 ML IV SCH ×2 (00:31→08:49)
[2022-06-11 02:00] VITALS: BP 163/80
--- NOTE | 2022-06-11 06:20 | NUR ---
Patient in room PCU 3027. I have received report from Nadine SOLIS and had the opportunity to ask questions and assume patient care.
[2022-06-11 07:00] VITALS: BP 158/83
[2022-06-11] MEDS: enoxaparin 40mg/0.4ml syringe SUBCUT SCH (08:48)
[2022-06-11] MEDS: aspirin 81mg, enteric-coated 1 TAB TABLET.DR PO SCH (08:48)
[2022-06-11] MEDS: lisinopril 10 MG tablet PO SCH (08:48)
[2022-06-11] MEDS: carvedilol 6.25mg tablet PO SCH (08:48)
[2022-06-11] MEDS: linezolid 600mg tablet PO SCH (08:48)
[2022-06-11] MEDS: nystatin 15 GM powder TP SCH ×2 (08:49→13:32)
[2022-06-11] MEDS: clopidogrel 75mg tablet PO SCH (08:49)
[2022-06-11] MEDS: docusate sod 100mg capsule PO SCH (08:49)
[2022-06-11] MEDS: pantoprazole 40mg Tablet.DR PO SCH (08:49)
[2022-06-11] MEDS: insulin Lispro (HumaLOG) vial - multi-dose SQ SCH ×2 (09:15→13:29)
--- NOTE | 2022-06-11 10:54 | NUR ---
PRESSURE ULCER EDUCATION: DEFINITION: A pressure ulcer is an area of skin that breaks down when you stay in one position too long. The constant pressure against the skin reduces the blood flow to that area and the affected tissue dies. CAUSES: "Being bedridden or in a wheelchair "Fragile skin "Having a chronic condition, such as diabetes or vascular disease "Inability to move certain parts of your body without assistance "Older age "Incontinence of urine or stool SYMPTOMS: "A reddened area that DOES NOT turn white when pressed on - this can be the beginning of a pressure ulcer "A blister, deep sore or a crater - these can be advanced pressure ulcers FIRST AID: "Relieve the pressure on this area "Keep the area clean and dry "Call your primary doctor if you see any of the above symptoms "DO NOT massage the area "DO NOT use a donut shaped or ring shaped pillow- these actually interfere with the blood flow and cause complications PREVENTION: "Check for pressure ulcers everyday "Change position at least every two hours to relieve pressure "Use items that help relieve pressure- pillows, sheepskin, foam padding, and powders. "Keep skin clean and dry "Eat healthy well balanced meals "Exercise daily IF YOU SEE ANY OF THESE SYMPTOMS WHILE IN THE HOSPITAL - TELL YOUR NURSE IMMEDIATELY. IF YOU SEE ANY OF THESE SYMPTOMS WHILE AT HOME OR HAVE ANY QUESTIONS OR CONCERNS ABOUT PRESSURE ULCERS - CALL YOUR PRIMARY DOCTOR IMMEDIATELY. Addendum: 06/11/22 at 1054 by Viri Dixon RN Amended: Links added.
[2022-06-11 11:26] VITALS: BP 163/89
[2022-06-11] MEDS: LACTOSE-REDUCED FOOD (ENSURE PLUS HP) 237 ML LIQUID PO SCH (13:26)
--- NOTE | 2022-06-11 14:48 | NUR ---
Pt stable for transfer to [facility]. All belongings collected and sent with patient. PIV stayed in patient. Tele discontinued. Home medications sent with patient. Picked up by EMS and taken to [facility] at 1400.
== END 2022-06-11 14:15 | DRG 871 ==
LOC: ER 13:54 → ED HOLD 20:21 → EDBEDREQ 06-01 00:16 → CICU 2S 06-01 09:39 → PCU 3S 06-01 16:37
PROVIDERS: ADMIT Family Medicine; ATTEND Family Medicine
PROC: 00JU3ZZ Inspection of Spinal Canal, Percutaneous Approach (ICD-10-PCS; 2022-05-31)
PROC: 5A09357 Assistance with Respiratory Ventilation, Less than 24 Consecutive Hours, Continuous Positive Airway Pressure (ICD-10-PCS; principal; 2022-06-01)
PROC: 5A09357 Assistance with Respiratory Ventilation, Less than 24 Consecutive Hours, Continuous Positive Airway Pressure (ICD-10-PCS; 2022-06-02)
PROC: B3251ZZ Computerized Tomography (CT Scan) of Bilateral Common Carotid Arteries using Low Osmolar Contrast (ICD-10-PCS; 2022-06-03)
PROC: B32G1ZZ Computerized Tomography (CT Scan) of Bilateral Vertebral Arteries using Low Osmolar Contrast (ICD-10-PCS; 2022-06-03)
PROC: B32R1ZZ Computerized Tomography (CT Scan) of Intracranial Arteries using Low Osmolar Contrast (ICD-10-PCS; 2022-06-03)
PROC: B3281ZZ Computerized Tomography (CT Scan) of Bilateral Internal Carotid Arteries using Low Osmolar Contrast (ICD-10-PCS; 2022-06-03)
PROC: 5A09357 Assistance with Respiratory Ventilation, Less than 24 Consecutive Hours, Continuous Positive Airway Pressure (ICD-10-PCS; 2022-06-05)
PROC: 5A09357 Assistance with Respiratory Ventilation, Less than 24 Consecutive Hours, Continuous Positive Airway Pressure (ICD-10-PCS; 2022-06-06)
PROC: 4A02XM4 Measurement of Cardiac Total Activity, External Approach (ICD-10-PCS; 2022-06-06)
PROC: 3E033HZ Introduction of Radioactive Substance into Peripheral Vein, Percutaneous Approach (ICD-10-PCS; 2022-06-06)
PROC: 5A09357 Assistance with Respiratory Ventilation, Less than 24 Consecutive Hours, Continuous Positive Airway Pressure (ICD-10-PCS; 2022-06-07)
PROC: 5A09357 Assistance with Respiratory Ventilation, Less than 24 Consecutive Hours, Continuous Positive Airway Pressure (ICD-10-PCS; 2022-06-08)
PROC: 5A09357 Assistance with Respiratory Ventilation, Less than 24 Consecutive Hours, Continuous Positive Airway Pressure (ICD-10-PCS; 2022-06-09)
PROC: 5A09357 Assistance with Respiratory Ventilation, Less than 24 Consecutive Hours, Continuous Positive Airway Pressure (ICD-10-PCS; 2022-06-11)
DX: A40.0 Sepsis due to streptococcus, group A (principal); G93.41 Metabolic encephalopathy; I21.A1 Myocardial infarction type 2; I63.9 Cerebral infarction, unspecified; N17.0 Acute kidney failure with tubular necrosis; S52.502A Unspecified fracture of the lower end of left radius, initial encounter for closed fracture; E87.1 Hypo-osmolality and hyponatremia; M62.82 Rhabdomyolysis; L03.115 Cellulitis of right lower limb; N39.0 Urinary tract infection, site not specified; R47.01 Aphasia; Z68.43 Body mass index [BMI] 50.0-59.9, adult; Z16.12 Extended spectrum beta lactamase (ESBL) resistance; Z20.822 Contact with and (suspected) exposure to COVID-19; R29.706 NIHSS score 6; E11.42 Type 2 diabetes mellitus with diabetic polyneuropathy; E66.01 Morbid (severe) obesity due to excess calories; W18.39XA Other fall on same level, initial encounter; B96.20 Unspecified Escherichia coli [E. coli] as the cause of diseases classified elsewhere; G47.30 Sleep apnea, unspecified; D69.59 Other secondary thrombocytopenia; R26.9 Unspecified abnormalities of gait and mobility; M54.9 Dorsalgia, unspecified; R65.20 Severe sepsis without septic shock; Z60.2 Problems related to living alone; E78.00 Pure hypercholesterolemia, unspecified; G89.29 Other chronic pain; I10 Essential (primary) hypertension; S80.02XA Contusion of left knee, initial encounter; Z78.9 Other specified health status; Z83.3 Family history of diabetes mellitus; Z85.3 Personal history of malignant neoplasm of breast; Z86.73 Personal history of transient ischemic attack (TIA), and cerebral infarction without residual deficits; Z88.5 Allergy status to narcotic agent; Z79.899 Other long term (current) drug therapy; Y93.89 Activity, other specified; Y92.098 Other place in other non-institutional residence as the place of occurrence of the external cause; Y99.8 Other external cause status
CPT/HCPCS: 36415; 36600; 70450; 70496; 70498; 71045; 73100; 73552; 73560; 78452; 80048; 80053; 80202; 80305; 80320; 81001; 82140; 82550; 82607; 82803; 82948; 83036; 83605; 83735; 84132; 84145; 84443; 84484; 85007; 85018; 85025; 85610; 85651; 85730; 86703; 87040; 87077; 87081; 87088; 87186; 87502; 87503; 87635; 87811; 93005; 93017; 93306; 93971; 97110; 97161; 97530; 97535; 99291; A4615; A5200; A6213; A6223; A6258; A6446; A6449; A9500; C1751; G0378; J0131; J0360; J0696; J1650; J1815; J2185; J2785; J3370; J3490; J7030; J7050; Q9967